=== PATIENT | male | born 1990 | race Caucasian/White ===

== ENCOUNTER → 2017-07-29 | Outpatient (CLI) | payer OTHER | LOC: M.RAD 11:42 | DX: S89.92XA Unspecified injury of left lower leg, initial encounter (principal); X58.XXXA Exposure to other specified factors, initial encounter; Y93.89 Activity, other specified; Y92.89 Other specified places as the place of occurrence of the external cause; Y99.8 Other external cause status ==

== ENCOUNTER → 2020-08-14 | Outpatient (CLI) | payer OTHER | LOC: M.ULTRA 15:47 | PROVIDERS: ATTEND Family Medicine | DX: N50.3 Cyst of epididymis (principal); I86.1 Scrotal varices; N50.812 Left testicular pain; N43.3 Hydrocele, unspecified ==

== ENCOUNTER 2020-09-24 09:16 | Emergency (ER) | payer OTHER ==
[~2020-09-24] VITALS: Ht 193 cm; Wt 93.0 kg
[2020-09-24] MEDS ORDERED: ZOFRAN ODT4 MG DISSOLVE (11:23)
[2020-09-24] MEDS ORDERED: TESSALON PERLE100 MG PO (11:23)
[2020-09-24] MEDS ORDERED: FLEXERIL PO (11:23)
[2020-09-24 11:31] VITALS: BP 111/81
== END 2020-09-24 11:32 | disposition home or self-care (01) ==
LOC: M.ERS 09:16
DX: U07.1 COVID-19 (principal)

== ENCOUNTER 2020-09-27 09:05 | Emergency (ER) | payer OTHER ==
[~2020-09-27] VITALS: Ht 193 cm; Wt 93.0 kg
[~2020-09-27 09:05] MED LIST: FLEXERIL PO; TESSALON PERLE100 MG PO; ZOFRAN ODT4 MG DISSOLVE
[2020-09-27] MEDS ORDERED: PROAIR HFA8.5 GM INH (11:43)
[2020-09-27] MEDS ORDERED: PREDNISONE 20 M20 MG PO (11:43)
[2020-09-27 11:58] VITALS: BP 115/70
== END 2020-09-27 11:58 | disposition home or self-care (01) ==
LOC: M.ERS 09:05
DX: U07.1 COVID-19 (principal)